=== PATIENT | female | born 1985 | race Caucasian/White ===

== ENCOUNTER 2017-06-23 07:00 | Inpatient (IN) ==
[2017-06-23] MEDS ORDERED: MEPERIDINE 25 MG/1 ML VIAL IV PRN (07:42)
[2017-06-23] MEDS ORDERED: ONDANSETRON 4 MG/2 ML VIAL IV PRN ×2 (07:42→12:25)
[2017-06-23] MEDS ORDERED: OXYTOCIN/LR 30 UNIT/1,000 ML BAG IV ONE (07:44)
[2017-06-23] MEDS ORDERED: OXYTOCIN 10 UNIT/ML VIAL IM ONE (07:44)
[2017-06-23] MEDS ORDERED: LACTATED RINGERS 1,000 ML IV ONE (07:45)
[2017-06-23] MEDS ORDERED: FAMOTIDINE 20 MG/2 ML VIAL IV ONE (07:45)
[2017-06-23] MEDS ORDERED: CITRIC ACID/SODIUM CITRATE 30 ML UDCUP PO ONE (07:45)
[2017-06-23] MEDS ORDERED: ceFAZolin 2,000 MG in PREMIX 1 EACH IV ONE (07:46)
[2017-06-23] MEDS ORDERED: LACTATED RINGERS 1,000 ML IV SCH ×2 (08:00→12:30)
[2017-06-23 08:07] LABS: Basophils % 0.4 % (0.0-0.8); Eosinophils # 0.1 10*3/uL (0.0-0.87); Eosinophils % 1.1 % (0.00-10.9); Hematocrit 34.2 VOL% (35.7-47.0); Hemoglobin 11.7 GM/DL (12.0-16.0); Immature Granulocytes % 0.8 %; Immature Granulocytes Absolute 0.09 #; Lymphocytes # 2.6 10*3/uL (1.4-4.0); Lymphocytes % 24.1 % (21.3-54.2); Mean Corpuscular HGB Conc 34.2 GM/DL (32-36); Mean Corpuscular Hemoglobin 31 PG (27-34); Mean Platelet Volume 11.7 FL (9.6-12.0); Monocytes # 0.8 10*3/uL (0.11-0.8); Monocytes % 7.5 % (1.7-12.7); Neutrophils # 7.1 10*3/uL (1.4-7.4); Neutrophils % 66.1 % (38.7-73.9); Platelet Count 178 T/CUMM (130-400); Red Cell Distribution Width 13.2 % (9.3-17.3); White Blood Count 10.8 T/CUMM (4-12)
[2017-06-23 08:39] LABS: Alanine Aminotransferase 18 U/L (13-56); Albumin 2.5 G/DL (3.4-5.0); Alkaline Phosphatase 106 U/L (45-117); Aspartate Amino Transferase 14 U/L (0-37); Bilirubin,Total < 0.39 MG/DL (0.2-1.0); Blood Urea Nitrogen 7 MG/DL (7-18); Calcium 8.7 MG/DL (8.5-10.1); Glucose 70 MG/DL (74-106); Osmolality,Calculated 276.3 MOS/KG (273-304); Potassium 2.9 MMOL/L (3.5-5.1); Sodium 141 MMOL/L (136-145); Total Protein 6.2 G/DL (6.4-8.3)
--- NOTE | 2017-06-23 09:19 | OB/GYN History & Physical ---
History of Present Illness Chief complaint: In for repeat c/s due to previous c section. History of present illness: Ms. Mir is a 31 year old female who is a 5 para 1 AB 3 living 1 [place] 06/28/2017 estimated gestational age of 39 weeks and 2 days. The patient presents for elective repeat section due to previous section. The risk and benefits has been thoroughly discussed with this patient and significant other, plan of care has been discussed with Dr. Worthy and all parties are in agreement plan. Patient received her care at the [facility] and she received routine care throughout and her course was uneventful. labs she is a negative she did receive RhoGam, rubella is immune, RPR is nonreactive, hepatitis B negative, HIV negative, and GBS culture negative. Review of systems is negative with the exception of above. Home Medications Medication Instructions Recorded Confirmed Type Labetalol Tab [Trandate Tab] 1 tablet PO BID 06/10/17 06/23/17 History No122/Iron/Folic Acid 1 tablet PO DAILY 06/17/17 06/23/17 History [ Multi Tablet] Allergies Allergy/AdvReac Type Severity Reaction Status Date / Time iodine Allergy Severe Swelling Verified 06/17/17 08:32 of Lip/Tongue/Throat hydrocodone [From Lortab] AdvReac Intermediate Migraine Verified 06/17/17 08:32 Medical,Surgical,& Family Hx - Medical History Medical History: noncontributory Reproductive: History of: Complication (miscarriage 10 years ago) - Surgical History Abdominal Surgeries: Surgical HX of: Abdominal Surgery, Appendectomy Reproductive Surgeries: Surgical HX of;: Section, Gynecologic Surgery ( LEEP) - Family History Family History: Reports;: Family Anesthesia Reaction (SISTER), Family Cancer, Family Diabetes, Family Heart Disease, Family Hypertension, Family Stroke - Social History Smoking Status: Former smoker (Stopped when she found out she was ) Have you smoked in the last 12 months: Yes Frequency of Alcohol Use: None Type of Drug Use: None Marital Status: Lives With:: Significant Other Functional capacity: uses cane/walker 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 SPA THERAPIST - Constitutional Vitals: Vital Signs Pulse Resp BP Pulse Ox 06/23/17 08:00 67 18 135/85 99 General appearance: no acute distress - Antepartum / Post Antepartum Exam Cervix - Dilatation: deferred Breast: bilateral: normal Abdomen obstetrics: Present: bowel sounds normal Uterus exam: Present: enlarged Anus/Rectum: Present: normal perianal skin - Head Head exam: Present: normal inspection - Respiratory Respiratory exam: Present: clear to auscultation bilaterally - Cardiovascular Cardiovascular exam: Present: regular rate and rhythm - GI/Abdominal GI/Abdominal exam: Present: normal bowel sounds, soft - Extremities Exam Extremities exam: Present: normal inspection - Back Exam Back exam: Present: normal inspection - Neurological Exam Neurological exam: Present: alert, oriented X3 - Psychiatric Psychiatric exam: Present: normal affect, normal mood - Skin Skin exam: Present: normal color, warm Assessment and Plan (1) Previous section Status: Acute Assessment and plan: Admit IV fluids Preop and informed consent for repeat section Anticipate viable infant Current Visit: Yes Results - Labs CBC & BMP: 06/23/17 07:49 06/23/17 07:49
[2017-06-23] MEDS ORDERED: ONDANSETRON 4 MG/2 ML VIAL ONE (11:22)
[2017-06-23 12:13] LABS: Cord Arterial Blood HCO3 23.3 MMOL/L
[2017-06-23 12:18] LABS: Cord Venous Blood HCO3 24.5 MMOL/L; Cord Venous Blood PCO2 39.6 MMHG; Cord Venous Blood PO2 42.7
--- NOTE | 2017-06-23 12:24 | Operative Note ---
Date of procedure: 06/23/17 Procedure: Preoperative diagnosis: Term repeat section Postoperative diagnosis: Same Anesthesia:[] Regional anesthesia Estimated blood loss: [] 300 Surgeon: Dr. Worthy Findings: [] Male infant 8 lbs. 4 oz., delivery time was 1157, Apgars 8 at 1 minute and 9 at 5 minutes, cord blood and cord gas obtained Complications: None Procedure: Low transverse section The patient was taken to the operating suite heart tones were obtained prior to and after regional anesthesia was obtained. She was placed in supine position her abdomen was prepped and draped in usual manner for major abdominal surgery. Through an abdominal incision the skin, subcutaneous, fascial layer and peritoneal the abdomen was entered. The bladder flap was created and a low transverse incision was made.. Fluid was clear and normal amount X, Apgars, the placenta was delivered and sent to lab for further evaluation. Injected with intrauterine Pitocin. The first layer of the uterus was closed with #1 Vicryl in a continuous locking manner. Close to imbricate the first layer with #1 Vicryl. The peritoneum was approximated with #2-0 Vicryl.[] All the last sponges and instruments were accounted for -2.) #2-0 Vicryl. Fascia was approximated with #0-0 Maxon.. The skin was approximated with richard. She tolerated procedure well and was taken to recovery room in stable condition. Surgeon / Physician: Barby Worthy Results - Labs CBC & BMP: 06/23/17 07:49 06/23/17 07:49 Discharge Plan - Discharge Medications No Action No122/Iron/Folic Acid [ Multi Tablet] 1 tablet PO DAILY Labetalol Tab [Trandate Tab] 1 tablet PO BID - Follow Up or Referral - Forms/Instructions
[2017-06-23] MEDS ORDERED: MAGNESIUM HYDROXIDE SUSP 30 ML UDCUP PO PRN (12:25)
[2017-06-23] MEDS ORDERED: ACETAMINOPHEN 325 MG TABLET PO PRN (12:25)
[2017-06-23] MEDS ORDERED: RHO(D) IMMUNE GLOBULIN 300 MCG SYRINGE IM ONE (12:25)
[2017-06-23] MEDS ORDERED: OXYTOCIN/LR 20 UNIT/1,000 ML BAG IV ONE (12:25)
[2017-06-23] MEDS ORDERED: SIMETHICONE CHEW 80 MG TABLET PO PRN (12:25)
[2017-06-23] MEDS ORDERED: ePHEDrine 50 MG/ML AMP ONE (12:36)
[2017-06-23] MEDS ORDERED: MORPHINE 10 MG/10 ML VIAL ONE (12:38)
--- NOTE | 2017-06-23 12:45 | Anesthesia Post-Op ---
Anesthesia Post OP - Post Ansesthetic Evaluation Patient seen in post op: Yes Resp: within normal limits CV: within normal limits Mental: within normal limits Temp: within normal limits [id number]: within normal limits Nausea and Vomiting: within normal limits Pain: within normal limits
[2017-06-23 13:20] LABS: Apearance,Urine CLEAR (Clear); Bilirubin,Urine Negative (Negative); Blood, Urine Negative (Negative); Glucose,Urine (UA) Negative (Negative); Ketones,Urine 20 mg/dL (Negative); Nitrite,Urine Negative (Negative); Protein,Urine Negative; RBC,Urine 3 /HPF (0-4); Squamous Epithelial Cell,Urine Occasional /HPF (0-10); Urine Color Yellow (Yellow); Urine Specific Gravity 1.006 (1.001-1.035); Urine Urobilinogen < 2.0 EU/DL (0.2-1.0); WBC,Urine 27 /HPF (0-6)
[2017-06-23] MEDS: ACETAMINOPHEN/CODEINE 300-30 MG TABLET PO PRN (14:59)
[2017-06-23] MEDS ORDERED: diphenhydrAMINE 50 MG/1 ML VIAL IV PRN ×2 (17:48→17:49)
[2017-06-23 20:21] LABS: Basophils % 0.2 % (0.0-0.8); Eosinophils % 0.2 % (0.00-10.9); Hematocrit 25.8 VOL% (35.7-47.0); Hemoglobin 8.9 GM/DL (12.0-16.0); Immature Granulocytes % 0.5 %; Immature Granulocytes Absolute 0.07 #; Lymphocytes # 1.9 10*3/uL (1.4-4.0); Lymphocytes % 14.8 % (21.3-54.2); Mean Corpuscular HGB Conc 34.5 GM/DL (32-36); Mean Corpuscular Hemoglobin 31 PG (27-34); Mean Corpuscular Volume 89.6 FL (87-102); Mean Platelet Volume 11.7 FL (9.6-12.0); Monocytes # 0.6 10*3/uL (0.11-0.8); Neutrophils # 10.1 10*3/uL (1.4-7.4); Neutrophils % 79.3 % (38.7-73.9); Platelet Count 157 T/CUMM (130-400); Red Blood Count 2.88 MC/CUMM (3.8-5.5); Red Cell Distribution Width 13.1 % (9.3-17.3); White Blood Count 12.8 T/CUMM (4-12)
[2017-06-24] MEDS: DOCUSATE SODIUM 100 MG CAPSULE PO SCH ×3 (00:50→21:43)
[2017-06-24 07:21] LABS: Basophils % 0.2 % (0.0-0.8); Eosinophils # 0.1 10*3/uL (0.0-0.87); Eosinophils % 0.6 % (0.00-10.9); Hematocrit 26.3 VOL% (35.7-47.0); Hemoglobin 9.2 GM/DL (12.0-16.0); Immature Granulocytes % 0.9 %; Immature Granulocytes Absolute 0.11 #; Lymphocytes # 2.2 10*3/uL (1.4-4.0); Lymphocytes % 16.7 % (21.3-54.2); Mean Corpuscular Hemoglobin 31 PG (27-34); Mean Corpuscular Volume 88.6 FL (87-102); Mean Platelet Volume 11.6 FL (9.6-12.0); Monocytes # 0.7 10*3/uL (0.11-0.8); Monocytes % 5.7 % (1.7-12.7); Neutrophils # 9.8 10*3/uL (1.4-7.4); Neutrophils % 75.9 % (38.7-73.9); Platelet Count 169 T/CUMM (130-400); Red Blood Count 2.97 MC/CUMM (3.8-5.5); Red Cell Distribution Width 13.1 % (9.3-17.3); White Blood Count 12.9 T/CUMM (4-12)
[2017-06-24] MEDS: MULTIVITAMIN (PRENATAL) TABLET PO SCH (08:36)
[2017-06-24] MEDS: FERROUS SULFATE 325 MG TABLET PO SCH ×2 (08:38→21:43)
[2017-06-24] MEDS: IBUPROFEN 800 MG TABLET PO PRN ×2 (09:06→14:19)
--- NOTE | 2017-06-24 10:15 | OB/GYN Progress Note ---
Assessment and Plan (1) Previous section Status: Acute Assessment and plan: Admit IV fluids Preop and informed consent for repeat section Anticipate viable Current Visit: Yes (2) Status post repeat low transverse section Status: Acute Assessment and plan: Initiate routine postop orders. 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 Bonding well with . Exam REEL AND REWINDER OPERATOR - Constitutional Vitals: Vital Signs Temp Pulse Resp BP Pulse Ox 06/24/17 07:46 97.5 F L 92 H 20 129/86 98 06/24/17 06:46 18 06/24/17 05:00 18 06/24/17 04:00 97.4 F L 76 17 130/76 97 06/24/17 03:00 18 06/23/17 23:56 97.3 F L 93 H 19 124/76 97 06/23/17 20:00 98.5 F 80 18 137/80 97 06/23/17 18:20 62 20 139/75 99 06/23/17 17:20 97.3 F L 69 20 144/80 97 06/23/17 16:20 68 20 142/75 99 06/23/17 15:50 62 20 141/88 99 06/23/17 15:20 97.0 F L 71 20 138/85 99 General appearance: no acute distress - Antepartum / Post Post Exam Breast: bilateral: normal Abdomen obstetrics: Present: bowel sounds normal Vagina: Present: discharge (Light lochia rubra) Uterus exam: Present: enlarged (Fundus firm and midline) - Gyencological / Post Surgical Post Surgical Exam Lungs: bilateral: normal Chest: Normal S1, Normal S2 Extremities REEL AND REWINDER OPERATOR: Present: edema Abdomen obstetrics progress note: Present: normal appearance, soft Incision OB: Present: normal, intact - Respiratory Respiratory exam: Present: clear to auscultation bilaterally - Cardiovascular Cardiovascular exam: Present: regular rate and rhythm - GI/Abdominal GI/Abdominal exam: Present: normal bowel sounds, soft - Extremities Exam Extremities exam: Present: normal inspection - Back Exam Back exam: Present: normal inspection - Neurological Exam Neurological exam: Present: alert, oriented X3 - Psychiatric Psychiatric exam: Present: normal affect, normal mood - Skin Skin exam: Present: normal color, warm Results - Labs CBC & BMP: 06/24/17 07:10 06/23/17 07:49
[2017-06-24] MEDS ORDERED: diphenhydrAMINE CAP 25 MG CAPSULE ONE (14:15)
[2017-06-24] MEDS: ACETAMINOPHEN/CODEINE 300-30 MG TABLET PO PRN (14:18)
[2017-06-24] MEDS ORDERED: diphenhydrAMINE CAP 25 MG CAPSULE PO PRN (14:20)
[2017-06-24] MEDS: PROMETHAZINE 25 MG/1 ML VIAL IM PRN ×2 (14:31→21:39)
[2017-06-24] MEDS ORDERED: PROMETHAZINE 25 MG/1 ML VIAL ONE (15:02)
[2017-06-24] MEDS: POTASSIUM CHLORIDE RIDER 10 MEQ in PREMIX 1 EACH IV PRN ×5 (16:58→20:45)
[2017-06-25] MEDS: ACETAMINOPHEN/CODEINE 300-30 MG TABLET PO PRN (06:19)
[2017-06-25] MEDS: IBUPROFEN 800 MG TABLET PO PRN (06:19)
[2017-06-25 07:12] VITALS: BP 139/86
[2017-06-25] MEDS: FERROUS SULFATE 325 MG TABLET PO SCH (09:16)
[2017-06-25] MEDS: DOCUSATE SODIUM 100 MG CAPSULE PO SCH (09:17)
[2017-06-25] MEDS: MULTIVITAMIN (PRENATAL) TABLET PO SCH (09:17)
--- NOTE | 2017-06-25 10:50 | Discharge Summary ---
Hospital Course - Hospital Course Hospital Course: Ms. Mir presented to the labor department for repeat section due to previous section. She has followed a routine postoperative course and she has done well. Her potassium was low and she was treated with potassium IV and will be discharged home with potassium by mouth. Her incision is well approximated without signs of infection. Her fundus is firm and midline. She is voiding without difficulty. Her bowel sounds are positive and she has had a normal bowel movement. She is bonding well with her . Her vital signs are stable. She will be discharged home with prescriptions for pain and a follow-up appointment in our office. Diagnosis - Discharge Diagnosis (1) Previous section Status: Acute (2) Status post repeat low transverse section Status: Acute Specialty Discharge - Follow Up or Referrals Follow up with: Barby Worthy MD [Physician] - 2 Weeks Discharge Plan - Discharge Data Disposition: Disch To Home/Self Care Condition at Discharge: Stable Discharge Diet: advance to your usual diet, regular diet Activity: increase activity as tolerated, no lifting, no prolonged standing Hygiene: may shower Weight Bearing at Discharge: partial weight bearing Driving: not until seen by doctor Contact your physician if you experience:: fever over 101, pain uncontrolled by pain medications - Discharge Medications New Acetamin/Codeine 300-30 Tab [Tylenol/Codeine #3] 1 tablet PO Q4H PRN #30 tablet PRN Reason: Pain Mild (1-3) Ferrous Sulfate Tab [Feosol Original Tab] 325 mg PO BID #60 tablet Ibuprofen Tab [Motrin Tab] 800 mg PO Q8H PRN #30 tablet PRN Reason: Pain Severe (8-10) Potassium Chloride Cap/Tab [K Dur] 20 meq PO DAILY #30 tablet NIFEdipine XL TAB [Procardia Xl] 30 mg PO DAILY #30 tablet No Action No122/Iron/Folic Acid [ Multi Tablet] 1 tablet PO DAILY Labetalol Tab [Trandate Tab] 1 tablet PO BID - Follow Up or Referral Follow Up: Barby Worthy MD [Physician] - - Forms/Instructions Instructions: Section (DC), Depression (GEN), Perineal Care (DC), Bleeding (DC) Exam - Constitutional Vitals: Period Temp Pulse Resp BP Sys/Juares Pulse Ox Last 24 Hr 96.4 F-98.9 F 76-89 18-20 118-140/75-89 98-100 General appearance: no acute distress - Head Head exam: Present: normal inspection - Respiratory Respiratory exam: Present: clear to auscultation bilaterally - Cardiovascular Cardiovascular exam: Present: regular rate and rhythm - GI/Abdominal GI/Abdominal exam: Present: normal bowel sounds, soft - Extremities Exam Extremities exam: Present: normal inspection - Neurological Exam Neurological exam: Present: alert, oriented X3 - Psychiatric Psychiatric exam: Present: normal affect, normal mood - Skin Skin exam: Present: normal color, warm Discharge Results Labs on day of discharge: Labs from last 24 hours 06/24/17 23:38 Potassium 3.2 L DS: Provider Date of admission: 06/23/17 07:42 Primary care physician: HOWARD Armstrong Attending physician on admission: Barby Worthy MD Consults: 06/23/17 07:42 Consult to Anesthesiology [CONS] Routine Consulting Provider: Reason for Anesthesiology: Epidural Consult Comment: Epidural for pain managment 06/23/17 12:25 Consult to Quality Control Director [CONS] Routine Consult Quality Control Director: Breast Feeding Discharging clinician: Estefani Jackson CNM Expected date of discharge: 06/25/17
== END 2017-06-25 12:10 | disposition home or self-care (01) | DRG 766 ==
LOC: N.LDOUT 07:00 → N.LD 07:02 → N.OB 15:49
PROVIDERS: ADMIT Obstetrics & Gynecology; ATTEND Obstetrics & Gynecology
PROC: LDCSECT (ICD-10-PCS; 2017-06-23 08:00)